=== PATIENT | female | born 1945 | race Caucasian/White ===

== ENCOUNTER 2017-10-11 14:53 | Inpatient (IN) ==
[2017-10-11] MEDS ORDERED: Naloxone 0.4 MG/ML INJ IVP PRN (18:22)
[2017-10-11] MEDS ORDERED: Ketorolac 15 MG/ML VIAL IVP PRN (18:22)
--- NOTE | 2017-10-11 18:41 | Internal Med History&Physical ---
<Jose R Canales - Last Filed: 10/11/17 18:38> Date of Encounter: 10/11/17 Time of Encounter: 18:38 Assessment and Plan (1) Right thigh pain Current visit: Yes Status: Acute Continues to have Rt thigh pain, reporting dull and sometimes sharp shooting pain Still unable to bare weight or ambulate due to right thigh pain; etiology unknown Unclear etiology, no joint swelling, tenderness or crepitus noted D/t clinical presentation Ortho was consulted via [facility] physician and has agreed to accept the patient as long as hospitalist admits. Ortho will see patient in the morning. X-ray right femur completed at [facility] is negative lumbosacral and Rt hip MRI for further evaluation-pending manage pain with hydrocodone and torodol (2) Unable to ambulate Current visit: Yes Status: Acute Still unable to bare weight or ambulate due to right thigh pain X-ray right femur completed at [facility] is negative Unclear etiology, no joint swelling, tenderness or crepitus noted See plan above (3) HTN (hypertension) Current visit: Yes Status: Acute History of essential hypertension. Blood pressure currently stable. Resume home blood pressure medications Qualifiers: Hypertension type: essential hypertension Qualified Code(s): I10 - Essential (primary) hypertension (4) DM (diabetes mellitus) Current visit: Yes Status: Acute History of type 2 diabetes. Continue basal insulin at home dose. Start low- dose sliding scale insulin coverage with before meals and at bedtime Accu- Cheks. Diabetic/cardiac diet Qualifiers: Diabetes mellitus type: type 2 Diabetes mellitus complication status: without complication Diabetes mellitus shelter insulin use: with shelter use Qualified Code(s): E11.9 - Type 2 diabetes mellitus without complications ; Z79.4 - terminal operations supervisor (current) use of insulin; Z79.4 - terminal operations supervisor (current) use of insulin; Z79.4 - terminal operations supervisor (current) use of insulin; Z79.4 - retirement ( current) use of insulin (5) DVT prophylaxis Current visit: Yes Status: Acute Heparin 5000 units subcutaneous twice a day Internal Medicine - H&P: HPI Chief complaint: unable to ambulate or weight bare d/t Rt hip pain Admitted From: Home Plans for Post Hospital Care: Home History of present illness: Ms. Duarte is a 72 year old female with a PMH of neuropathy, hypertension, diabetes, dyslipidemia, neuropathy, CHF. Presents to ARM today from [facility] as she is unable to ambulate or bear weight on right leg due to pain. Denies any injury or trauma. She reports that Thursday she had to make breakfast and felt something pop in her right hip and has had pain ever since. While at [facility] and x-ray of the right femur was completed and found to be negative. However, due to continued pain she requested to be sent to [facility] for further workup and evaluation Past Med Surg Social Fam HX - Past Medical History Medical history: cardiomyopathy, CHF, diabetes, GERD, hypertension Psychiatric history: no psych history - Past Surgical History Surgical History: hysterectomy - Social History Smoking Status: Never smoker Smokeless Tobacco Status: No Alcohol use: none Drug use: none - Additional Family History Additional family history: Noncontributory Internal Medicine - H&P: Meds 3 Allergy/AdvReac Type Severity Reaction Status Date / Time No Known Allergies Allergy Verified 10/11/17 18:57 All Systems PM: A 10-system review of systems was performed and is negative for pertinent findings except as documented above in the HPI. - Constitutional Constitutional: no chills, no fever(s), no night sweats - EENT Eyes: no change in vision, no discharge, no pain, no photophobia Ears: no ear discharge, no ear pain, no tinnitus Nose, mouth and throat: no dysphagia, no nasal discharge, no neck pain, no sore throat - Cardiovascular Cardiovascular ROS IM: no chest pain, no diaphoresis, no dyspnea, no lightheadedness, no palpitations, no syncope - Respiratory Respiratory: no cough, no dyspnea, no wheezing, no excessive phlegm production - Gastrointestinal Gastrointestinal: no abdominal pain, no diarrhea, no hematemesis, no hematochezia, no melena, no nausea, no vomiting - Genitourinary Genitourinary: no change in urinary stream, no dysuria, no flank pain, no hematuria - Musculoskeletal Musculoskeletal ROS IM: arthralgias, limited range of motion, myalgias, no back pain, no deformity, no joint swelling, no muscle cramps, no muscle weakness, no numbness, no tingling - Integumentary Integumentary IM: no rash, no unusual bruising - Neurological Neurological ROS: no confusion, no convulsions, no focal weakness, no numbness, no tingling, no tremor(s) - Hematologic/Lymphatic Hematologic/Lymphatic: no easy bruising - Constitutional Vitals: Temp Pulse Resp BP Pulse Ox 98.5 F 92 16 121/65 96 10/11/17 17:08 10/11/17 17:08 10/11/17 17:08 10/11/17 17:08 10/11/17 17:08 General appearance: Present: cooperative, A&O X 3, no acute distress, answers questions appropriately - Head Head exam: Present: atraumatic, normocephalic - Eye Eye exam: Present: PERRL, conjuntiva pink, sclera anicteric Pupils: Present: PERRL - Neck Neck exam general surgery: Present: supple, trachea midline. Absent: lymphadenopathy - Respiratory Respiratory exam: Present: CTAB. Absent: accessory muscle use, rales, rhonchi, wheezes - Cardiovascular Cardiovascular exam: Present: RRR, +S1, +S2. Absent: diastolic murmur, gallop, rubs, systolic murmur - GI/Abdominal GI/Abdominal exam: Present: normal bowel sounds, soft, no peritoneal signs. Absent: distended, tenderness - Extremities Exam Extremities exam: Present: warm, radial pulses palpable and symmetrical. Absent : calf tenderness, cyanotic, pedal edema - Expanded Lower Extremities Exam Lower Leg exam: Present: full ROM (Full range of motion but pain with R Serrano), normal inspection. Absent: crepitus, deformity, dislocation, swelling, tenderness Gait: Present: not tested/not observed - Neurological Exam Neurological exam: Present: CN II-XII intact, oriented X3, no focal deficits. Absent: pronater drift, facial droop, speech deficit - Skin Skin exam: Present: dry, intact Internal Med - H&P Results - Diagnostic Studies Other Images Additional comments: Report of right femur imaging is negative for fracture <Rola Austin - Last Filed: 10/11/17 20:15> Date of Encounter: 10/11/17 Internal Medicine - H&P: HPI History of present illness: Ms. Duarte is a 72 year old female Past Med Surg Social Fam HX - Family History Mother Living Status: Cause of : [place] Brother Living Status: Cause of : [place] All Systems PM: A 10-system review of systems was performed and is negative for pertinent findings except as documented above in the HPI. - Constitutional Vitals: Temp Pulse Resp BP Pulse Ox 98.2 F 86 16 93/57 92 10/11/17 19:13 10/11/17 19:13 10/11/17 19:13 10/11/17 19:13 10/11/17 19:13 - Attending Attestation I examined this patient and my medical decision-making was reviewed with the Resident Physician. I agree with the documented findings, disposition and treatment plan as described except to the extent set forth below.
[2017-10-11] MEDS ORDERED: Polyethylene Glycol 3350 255 GM POWDER PO ONE (18:51)
[2017-10-11] MEDS ORDERED: D5% in Water 1,000 ML IVC PRN (18:55)
[2017-10-11] MEDS ORDERED: Dextrose Gel 15 GM PO PRN ×2 (18:55)
[2017-10-11] MEDS ORDERED: *HR* Dextrose 50 % in Water (Syg) 50 ML SYRINGE IVP PRN (18:55)
[2017-10-11] MEDS: Insulin LISPRO 300 UNITS/3 ML VIAL SQ SCH (21:44)
[2017-10-11] MEDS: Insulin DETEMIR 100 UNIT/ML X5UNITS SQ SCH (21:45)
[2017-10-11] MEDS: Gabapentin 300 MG CAPSULE PO SCH (21:45)
[2017-10-11] MEDS: Famotidine 20 MG TABLET PO SCH (21:45)
[2017-10-12] MEDS ORDERED: *HR* Heparin 5,000 UNIT/ML VIAL SQ SCH (06:00)
[2017-10-12 07:01] LABS: Basophils # 0.1 K/mcL (0.0-0.2); Eosinophils # 0.1 K/mcL (0.0-0.6); Hematocrit 41.7 % (35.3-44.9); Hemoglobin 13.4 g/dL (11.5-15.4); Immature Granulocytes % 0.2 % (0-4); Lymphocytes # 2.4 K/mcL (0.6-4.6); Lymphocytes % 29.1 %; Mean Corpuscular HGB Conc 32.1 g/dL (31.6-35.5); Mean Corpuscular Volume 90.3 fL (83.0-100.0); Mean Platelet Volume 10.8 fL (9.4-12.4); Monocytes # 0.6 K/mcL (0.0-1.3); Monocytes % 7.3 %; Platelet Count 328 K/mcL (140-400); Red Blood Count 4.62 M/mcL (3.82-4.97); Red Cell Distribution Width 13.8 % (11.5-14.5); Segmented Neutrophils % 61.4 %
[2017-10-12 07:14] LABS: Calcium 9.6 mg/dL (8.6-10.8); Potassium 3.7 mEq/L (3.5-4.5)
[2017-10-12] MEDS: Aspirin 81 MG TAB.CHEW PO SCH (08:44)
[2017-10-12] MEDS: Insulin LISPRO 300 UNITS/3 ML VIAL SQ SCH ×4 (08:44→20:50)
[2017-10-12] MEDS: Famotidine 20 MG TABLET PO SCH (08:44)
[2017-10-12] MEDS: 0.9 % Sodium Chloride 1,000 ML IVC SCH ×2 (08:45→22:25)
[2017-10-12] MEDS ORDERED: amLODIPine 5 MG TABLET PO SCH (09:00)
[2017-10-12] MEDS ORDERED: Furosemide 20 MG TABLET PO PRN (09:00)
--- NOTE | 2017-10-12 11:47 | Internal Med Progress Note ---
Date of Encounter: 10/12/17 Time of Encounter: 11:39 - Assessment and plan (1) Right thigh pain Current Visit: Yes Status: Acute Assessment and plan: presented with right leg pain, swelling and inability to ambulate. Patient reports feeling something pop on her right knee approximately one week ago and has had subsequent pain and decreased mobility since that time. Unable to have MRI due to pacemaker. Lumbar spine x-ray with degenerative disc disease and facet arthropathy gratis at L5-S1 and chronic T12 compression fracture, no acute fracture. Supportive care with pain control. PT/OT consult. Ortho following (2) MARI (acute kidney injury) Current Visit: Yes Status: Acute Assessment and plan: Cr 2.0 on arrival; no known renal disease. Hold home JUNAID. IV fluids. Monitor repeat renal function. (3) HTN (hypertension) Current Visit: Yes Status: Acute Assessment and plan: per hx. BP soft/borderline. Continue home BP medications with hold parameters except for JUNAID as noted above. Monitor BP and titrate PRN Qualifiers: Hypertension type: essential hypertension Qualified Code(s): I10 - Essential (primary) hypertension (4) DM (diabetes mellitus) Current Visit: Yes Status: Acute Assessment and plan: per hx. Blood sugar controlled. Holding home oral hypoglycemics. SSI. Monitor blood sugar and titrate PRN Qualifiers: Diabetes mellitus type: type 2 Diabetes mellitus complication status: without complication Diabetes mellitus group home insulin use: with intermediate accountant use Qualified Code(s): E11.9 - Type 2 diabetes mellitus without complications ; Z79.4 - intermediate accountant (current) use of insulin; Z79.4 - intermediate accountant (current) use of insulin; Z79.4 - USP (current) use of insulin; Z79.4 - USP ( current) use of insulin (5) DVT prophylaxis Current Visit: Yes Status: Acute Assessment and plan: heparin - Time Spent With Patient less than 15 minutes - Subjective Interval history: Seen and examined at bedside, patient is new to me. Information obtained from chart review and patient report. She is still having right leg pain, worse with movement and better with rest. Unable to ambulate or put weight on right leg. NO back pain, no bowel/bladder incont - Constitutional Vitals: Temp Pulse Resp BP Pulse Ox 97.9 F 77 18 94/59 91 10/12/17 10:54 10/12/17 10:54 10/12/17 10:54 10/12/17 10:54 10/12/17 10:54 General appearance: Present: cooperative, A&O X 3, no acute distress, answers questions appropriately - Head Head exam: Present: atraumatic, normocephalic - Eye Eye exam: Present: PERRL, conjuntiva pink, sclera anicteric Pupils: Present: PERRL - Neck Neck exam general surgery: Present: supple, trachea midline. Absent: lymphadenopathy - Respiratory Respiratory exam: Present: CTAB. Absent: accessory muscle use, rales, rhonchi, wheezes - Cardiovascular Cardiovascular exam: Present: RRR, +S1, +S2. Absent: diastolic murmur, gallop, rubs, systolic murmur - GI/Abdominal GI/Abdominal exam: Present: normal bowel sounds, soft, no peritoneal signs. Absent: distended, tenderness - Extremities Exam Extremities exam: Present: pedal edema, warm, radial pulses palpable and symmetrical. Absent: calf tenderness, cyanotic Additional comments: right leg swelling; non-pitting - Neurological Exam Neurological exam: Present: CN II-XII intact, oriented X3, no focal deficits. Absent: pronater drift, facial droop, speech deficit - Skin Skin exam: Present: dry, intact Internal Medicine: Result - Labs CBC & Chem 7: 10/12/17 06:11 10/12/17 06:11 Labs: Short CBC 10/12/17 Range/Units 06:11 WBC 8.1 (4.3-11.1) K/mcL Hgb 13.4 (11.5-15.4) g/dL Hct 41.7 (35.3-44.9) % Plt Count 328 (140-400) K/mcL Neutrophils # 5.0 (1.6-8.9) K/mcL BMP 10/12/17 06:11 Sodium 141 Potassium 3.7 Chloride 105 Carbon Dioxide 24 BUN 34 H Creatinine 2.01 H Glucose 192 H Calcium 9.6 - Impressions Impressions Hip X-Ray 10/12/17 08:30 IMPRESSION: No acute osseous abnormality. Given the degree of osteopenia, nondisplaced fractures may be radiographically occult. If pain or concern for fracture persists, consider MR imaging. D/ /12/2017 09:37:28 Berndaette Moseley MD / neptali Interpreting Provider: Bernadette Moseley MD Lumbar Spine X-Ray 10/12/17 08:31 IMPRESSION: Multilevel degenerative disc disease and facet arthropathy as described above, greatest at L5-S1. Chronic T12 compression deformity with approximately 30% loss of vertebral body height, unchanged from 2009. No acute fracture. D/ / Milad Keller MD / Milad Keller MD Interpreting Provider: Milad Keller MD Consult Discharge Plan - Plan Referrals: Sol Armas, KEEPER HELPER [Primary Care Provider] -
--- NOTE | 2017-10-12 14:27 | Orthopedic Consult Note ---
Date of Encounter: 10/12/17 Time of Encounter: 13:30 Assessment and Plan (1) Right thigh pain Current Visit: Yes Status: Acute Xray of the right hip shows osteopenia but no acute bony abnormalities. Xray of lumbar spine shows degenerative disc disease L5-S1 and a chronic T12 compression deformity but no acute bony abnormalities. She cannot have MRI as she has a pace maker. Patient does have h/o pinched nerves from an old injury years ago and she feels this current pain is similar to that. Continue supportive care. Recommend PT/OT for ambulation. I discussed the case with Dr. Fisher. He recommends CT myelogram of lumbar spine and to follow up with production superintendent hydro on outpatient basis. History of Present Illness Chief complaint: right thigh pain HPI: Ms. Duarte is a 72 year old female who presented to [facility] from [facility] for right hip pain. Patient states about a week ago she was getting up off the couch when she felt a shooting pain in her right knee that went up to her right hip. She did go to [facility] on 10/06/17 where she states she was given muscle relaxers and sent home. The pain got worse yesterday so she returned to [facility] and was then transferred to [facility]. The pain is intermittent not constant and occurs with certain movements of the leg. States the thigh is tender when she touches the inner portion. She has chronic neuropathy from her diabetes but denies any new or worsening numbness or tingling to the extremities. Denies any new injuries. Denies any loss of bowel or bladder function. Denies foot drop. States she had a pinched nerve several years ago and states this current pain is similar to that but now worse than before. She states she has not been able to walk or bear weight to the right leg due to pain. Denies any other pains, denies back pain, chest pain, SOB, fevers. Past Med Surg Social Fam HX - Past Medical History Medical history: cardiomyopathy, CHF, diabetes, GERD, hypertension Psychiatric history: no psych history - Past Surgical History Surgical History: hysterectomy - Social History Smoking Status: Never smoker Smokeless Tobacco Status: No Alcohol use: none Drug use: none - Family History Mother Living Status: Cause of : [place] Brother Living Status: Cause of : [place] Medications and Allergies Atorvastatin [Lipitor] 20 mg PO HS 10/12/17 [History] Carvedilol [Coreg] 25 mg PO BID 10/12/17 [History] Furosemide [Lasix] 40 mg PO TID 10/12/17 [History] Gabapentin [Neurontin] 300 mg PO TID 10/12/17 [History] Glimepiride [Amaryl] 4 mg PO DAILY 10/12/17 [History] Insulin ASPART [Novolog] 15 unit SQ TID PRN 10/12/17 [History] Lisinopril 2.5 mg PO DAILY 10/12/17 [History] Ranitidine HCl [Acid Component Engineer] 150 mg PO DAILY 10/12/17 [History] 3 Allergy/AdvReac Type Severity Reaction Status Date / Time No Known Allergies Allergy Verified 10/11/17 18:57 All Systems Reviewed: A 10-system review of systems was performed and is negative for pertinent findings except as documented above in the HPI. - Constitutional Constitutional: as per HPI - Cardiovascular Cardiovascular: as per HPI - Respiratory Respiratory: as per HPI - Musculoskeletal Musculoskeletal: as per HPI Physical Exam - Constitutional Vitals: Temp Pulse Resp BP Pulse Ox 97.9 F 77 18 94/59 91 10/12/17 10:54 10/12/17 10:54 10/12/17 10:54 10/12/17 10:54 10/12/17 10:54 - Hip right Tenderness with palpation: none Full ROM: yes (no open wounds or lesions, some tenderness with straight leg raise but able to full ROM of hip) - Knee right Appearance: normal Tenderness with palpation knee: none Full ROM: yes Results - Labs Result Diagrams: 10/12/17 06:11 10/12/17 06:11 Labs: Abnormal lab results BUN 34 mg/dL (7-20) H 10/12/17 06:11 Creatinine 2.01 mg/dL (0.57-1.11) H 10/12/17 06:11 Est GFR ( Amer) 29 (> 60) L 10/12/17 06:11 Est GFR (Non-Af Amer) 24 (> 60) L 10/12/17 06:11 Glucose 192 mg/dL (70-99) H 10/12/17 06:11 POC Glucose 186 (58-89) H 10/11/17 20:01 Calculated Osmolality 305 (280-300) H 10/12/17 06:11 H & H 10/12/17 Range/Units 06:11 Hgb 13.4 (11.5-15.4) g/dL Hct 41.7 (35.3-44.9) % All other labs normal. - Diagnostic results Hip x-ray: report reviewed, image reviewed Lumbar AP/lateral x-ray: report reviewed, image reviewed Consult Discharge Plan - Plan Referrals: Sol Armas CNP [Primary Care Provider] - - Attending Attestation Case and plan of care discussed with supervising physician who was available for all aspects of care.
[2017-10-12] MEDS: *HR* Heparin 5,000 UNIT/ML VIAL SQ SCH ×2 (15:18→21:00)
[2017-10-12] MEDS: Gabapentin 300 MG CAPSULE PO SCH (20:48)
[2017-10-12] MEDS: Insulin DETEMIR 100 UNIT/ML X5UNITS SQ SCH (20:49)
[2017-10-13 04:49] LABS: Calcium 8.5 mg/dL (8.6-10.8); Potassium 3.8 mEq/L (3.5-4.5)
[2017-10-13] MEDS: *HR* Heparin 5,000 UNIT/ML VIAL SQ SCH ×3 (05:59→21:15)
[2017-10-13] MEDS: Insulin LISPRO 300 UNITS/3 ML VIAL SQ SCH ×4 (08:18→20:30)
[2017-10-13] MEDS: amLODIPine 5 MG TABLET PO SCH (08:18)
[2017-10-13] MEDS: Famotidine 20 MG TABLET PO SCH (08:19)
[2017-10-13] MEDS: Aspirin 81 MG TAB.CHEW PO SCH (08:19)
--- NOTE | 2017-10-13 15:49 | Physician Discharge Referral ---
ExtendedCare Referral Info Transfer To: [facility] Provider in Charge: Lorena Morales APRN Provider in Charge after Transfer: Other (SNF provider) Institutional Level of Care: Intermediate - Diagnosis (1) Right thigh pain Status: Acute (2) MARI (acute kidney injury) Status: Acute (3) HTN (hypertension) Status: Acute (4) DM (diabetes mellitus) Status: Acute (5) DVT prophylaxis Status: Acute - Transfer Medications Home Medications: Atorvastatin [Lipitor] 20 mg PO HS 10/12/17 [History] Carvedilol [Coreg] 25 mg PO BID 10/12/17 [History] Furosemide [Lasix] 40 mg PO TID 10/12/17 [History] Gabapentin [Neurontin] 300 mg PO TID 10/12/17 [History] Glimepiride [Amaryl] 4 mg PO DAILY 10/12/17 [History] Insulin ASPART [Novolog] 15 unit SQ TID PRN 10/12/17 [History] Lisinopril 2.5 mg PO DAILY 10/12/17 [History] Ranitidine HCl [Acid Signal And Communications Maintainer] 150 mg PO DAILY 10/12/17 [History] Allergies/Adverse Reactions: 3 Allergy/AdvReac Type Severity Reaction Status Date / Time No Known Allergies Allergy Verified 10/11/17 18:57 - Respiratory Orders None Smoking Cessation: Smoking cessation has been advised. For more information, call the [place] Tobacco Quit Line at 9-080-JMRRNOW. - Advance Directives Code Status: Full Code - Rehabiliation Orders Rehab Orders: Evaluation for Physical Therapy, Evaluation for Occupational Therapy - Diet Orders Regular CERTIFICATION: I certify that the transfer of the above named patient to an Extended Care Facility is necessary for the continuing treatment of the diagnosis listed. The above information is true and accurate reflection of patient's current condition. Confidential - Redisclosure prohibited without a patient's written consent.
--- NOTE | 2017-10-13 15:54 | Internal Med Progress Note ---
Date of Encounter: 10/13/17 Time of Encounter: 15:53 - Assessment and plan (1) Right thigh pain Current Visit: Yes Status: Acute Assessment and plan: presented with right leg pain, swelling and inability to ambulate. Patient reports feeling something pop near right knee approximately one week ago and has had subsequent pain and decreased mobility since that time. Unable to have MRI due to pacemaker. Lumbar spine x-ray with degenerative disc disease and facet arthropathy greatest at L5-S1 and chronic T12 compression fracture, no acute fracture. Evaluated by orthopedic who recommends CT myelogram of the lumbar spine however unable to do secondary to renal function. We will trial steroids as she is still unable to bear weight or ambulate. Evaluated by PT/OT who is recommending SNF at discharge. (2) MARI (acute kidney injury) Current Visit: Yes Status: Acute Assessment and plan: Cr 2.0 on arrival; no known renal disease. Hold home JUNAID. Cr improving with IV fluids. Monitor repeat renal function. Renal US pending. (3) HTN (hypertension) Current Visit: Yes Status: Acute Assessment and plan: per hx. BP soft/borderline. Continue home BP medications with hold parameters except for JUNAID as noted above. Monitor BP and titrate PRN Qualifiers: Hypertension type: essential hypertension Qualified Code(s): I10 - Essential (primary) hypertension (4) DM (diabetes mellitus) Current Visit: Yes Status: Acute Assessment and plan: per hx. Blood sugar controlled. Holding home oral hypoglycemics. SSI. Monitor blood sugar and titrate PRN Qualifiers: Diabetes mellitus type: type 2 Diabetes mellitus complication status: without complication Diabetes mellitus manager intermediate insulin use: with longterm use Qualified Code(s): E11.9 - Type 2 diabetes mellitus without complications ; Z79.4 - nursing home (current) use of insulin; Z79.4 - nursing home (current) use of insulin; Z79.4 - nursing home (current) use of insulin; Z79.4 - nursing home ( current) use of insulin (5) DVT prophylaxis Current Visit: Yes Status: Acute Assessment and plan: heparin - Time Spent With Patient less than 15 minutes - Subjective Interval history: Seen and examined at bedside. Patient says she feels about the same, still unable to bear weight on right leg. She reports severe pain at times but she does not want to take pain medicine. Strongly encouraged patient to take pain medicine before pain is uncontrolled. Discussed case with or so and can try steroids. Unable to have CT myelogram due to renal function. Plan for SNF placement at discharge. - Constitutional Vitals: Temp Pulse Resp BP Pulse Ox 98.2 F 77 16 153/80 94 10/13/17 14:54 10/13/17 14:54 10/13/17 14:54 10/13/17 14:54 10/13/17 14:54 General appearance: Present: cooperative, A&O X 3, no acute distress, answers questions appropriately - Head Head exam: Present: atraumatic, normocephalic - Eye Eye exam: Present: PERRL, conjuntiva pink, sclera anicteric Pupils: Present: PERRL - Neck Neck exam general surgery: Present: supple, trachea midline. Absent: lymphadenopathy - Respiratory Respiratory exam: Present: CTAB. Absent: accessory muscle use, rales, rhonchi, wheezes - Cardiovascular Cardiovascular exam: Present: RRR, +S1, +S2. Absent: diastolic murmur, gallop, rubs, systolic murmur - GI/Abdominal GI/Abdominal exam: Present: normal bowel sounds, soft, no peritoneal signs. Absent: distended, tenderness - Extremities Exam Extremities exam: Present: warm, radial pulses palpable and symmetrical. Absent : calf tenderness, cyanotic, pedal edema - Neurological Exam Neurological exam: Present: CN II-XII intact, oriented X3, no focal deficits. Absent: pronater drift, facial droop, speech deficit - Skin Skin exam: Present: dry, intact Internal Medicine: Result - Labs CBC & Chem 7: 10/12/17 06:11 10/13/17 03:40 Labs: BMP 10/13/17 03:40 Sodium 141 Potassium 3.8 Chloride 109 Carbon Dioxide 23 BUN 41 H Creatinine 1.43 H Glucose 192 H Calcium 8.5 L Consult Discharge Plan - Plan Referrals: Sol Armas CNP [Primary Care Provider] -
[2017-10-13] MEDS: predniSONE 20 MG TABLET PO SCH (17:13)
[2017-10-13] MEDS: Insulin DETEMIR 100 UNIT/ML X5UNITS SQ SCH (20:30)
[2017-10-13] MEDS: Gabapentin 300 MG CAPSULE PO SCH (20:30)
[2017-10-14] MEDS: 0.9 % Sodium Chloride 1,000 ML IVC SCH ×5 (04:48→18:06)
[2017-10-14] MEDS: *HR* Heparin 5,000 UNIT/ML VIAL SQ SCH (05:56)
[2017-10-14 07:03] LABS: BUN/Creatinine Ratio 31 (6-26); Blood Urea Nitrogen 23 mg/dL (8-23); Calcium 8.8 mg/dL (8.6-10.3); Carbon Dioxide 25 mEq/L (23-29); Chloride 110 mEq/L (98-107); Glucose 218 mg/dL (70-105); Osmolality,Calculated 304 (280-300); Potassium 3.9 mEq/L (3.5-5.1); Sodium 142 mEq/L (136-145); eGFR For African Americans > 60 (> 60); eGFR For Non-African Americans > 60 (> 60)
[2017-10-14] MEDS: *HR* HYDROcodone/Acet 5/325 mg TABLET PO PRN ×2 (09:09→17:20)
[2017-10-14] MEDS: amLODIPine 5 MG TABLET PO SCH (09:10)
[2017-10-14] MEDS: Aspirin 81 MG TAB.CHEW PO SCH (09:10)
[2017-10-14] MEDS: predniSONE 20 MG TABLET PO SCH (09:10)
[2017-10-14] MEDS: Famotidine 20 MG TABLET PO SCH (09:10)
[2017-10-14] MEDS: Insulin LISPRO 300 UNITS/3 ML VIAL SQ SCH ×4 (09:11→21:12)
--- NOTE | 2017-10-14 11:20 | Discharge Summary ---
Date of Encounter: 10/14/17 Time of Encounter: 11:15 - Discharge Diagnosis (1) Right thigh pain Priority: Primary Status: Acute Comments: presented with right leg pain and inability to ambulate. Patient reported feeling something "pop" near right knee approximately one week prior to presentation with subsequent pain and decreased mobility. Lumbar spine x-ray with degenerative disc disease and facet arthropathy greatest at L5-S1 and chronic T12 compression fracture, no acute fracture. Unable to have MRI due to pacemaker. CT myelogram showed multilevel thecal sac narrowing with neural foraminal stenosis, moderate to severe canal stenosis at L4-5, moderate to severe neural foraminal stenosis at L5-S1 with compression of both exiting nerve roots and chronic endplate fracture of T12. Discussed with Ortho and will consult Dr. Charlton for possible surgical intervention. (2) MARI (acute kidney injury) Priority: Primary Status: Acute Comments: Cr 2.0 on arrival; no known renal disease. Renal US unremarkable. Cr normalized with IV fluids and holding home JUNAID. Cont to hold home JUNAID with contrast exposure. Pre-medicated with IV fluids pre and post myelogram to protect against ELLA. Monitor repeat renal fx. (3) HTN (hypertension) Priority: Primary Status: Acute Comments: per hx. BP variable but acceptable. Home JUNAID stopped with MARI and contrast exposure. Home BB increased. Cont home amlodipine Qualifiers: Hypertension type: essential hypertension Qualified Code(s): I10 - Essential (primary) hypertension (4) DM (diabetes mellitus) Priority: Primary Status: Chronic Comments: per hx. Blood sugars variable but overall controlled. Monitor blood sugar and titrate PRN Qualifiers: Diabetes mellitus type: type 2 Diabetes mellitus complication status: without complication Diabetes mellitus halfway insulin use: with halfway use Qualified Code(s): E11.9 - Type 2 diabetes mellitus without complications ; Z79.4 - emt intermediate (current) use of insulin; Z79.4 - longterm (current) use of insulin; Z79.4 - emt intermediate (current) use of insulin; Z79.4 - longterm ( current) use of insulin (5) DVT prophylaxis Priority: Secondary Status: Acute Comments: SCDs - Discharge Medications Home Medications: Atorvastatin [Lipitor] 20 mg PO HS 10/12/17 [History] Carvedilol [Coreg] 25 mg PO BID 10/12/17 [History] Furosemide [Lasix] 40 mg PO TID 10/12/17 [History] Gabapentin [Neurontin] 300 mg PO TID 10/12/17 [History] Glimepiride [Amaryl] 4 mg PO DAILY 10/12/17 [History] Insulin ASPART [Novolog] 15 unit SQ TID PRN 10/12/17 [History] Lisinopril 2.5 mg PO DAILY 10/12/17 [History] Ranitidine HCl [Acid Tray Line Supervisor] 150 mg PO DAILY 10/12/17 [History] Allergies/Adverse Reactions: 3 Allergy/AdvReac Type Severity Reaction Status Date / Time No Known Allergies Allergy Verified 10/11/17 18:57 Procedures/tests Complete & Pending: Procedures Performed prior 72 hours Category Date Time Status retroperitoneal ultrasound - limited [US Exams 10/13/17 19:00 Completed retroperitoneal limited] [US] Routine Date of admission: 10/11/17 16:44 Primary care physician: Sol Armas, Consults: 10/11/17 18:28 Consult to Occupational Therapy [CONS] Routine Comment: Evaluate, develop and implement POC Reason for Consult: Unable to ambulate or weight bare due to new right hip pain Consult to Physical Therapy [CONS] Routine Comment: Evaluate, develop and implement POC Reason for Consult: Unable to ambulate or weight bare due to new right hip pain 10/11/17 18:45 Consult to Orthopedic Surgery [CONS] Routine Consulting Provider: [facility] Reason for Consult: unable to ambulate to bare weight d/t rt thigh pain Time Notified: 18:46 Call Completed: No 10/13/17 11:42 Consult to Turf Farm Worker [CONS] Routine Reason for SW Consult: discharge needs Discharging clinician: Lorena Morales Anticipated date of discharge: 10/14/17 - Patient Status Disposition: Transfer SNF Condition: Good Functional capacity at discharge: uses cane/walker Overall status at discharge: patient is not back to baseline - Discharge Instructions Follow Up With: Sol Armas CNP [Primary Care Provider] - - Diet and Activity Activity: as per physical therapy Diet: advance to your usual diet Interval History: Seen and examined at side. No changes in exam to report. Still with right leg pain and unable to bear weight. No numbness or tingling, no bowel or bladder incont - Time Spent with Patient Total time spent providing and/or coordinating discharge services: - Constitutional Vitals: Temp Pulse Resp BP Pulse Ox 97.9 F 86 16 150/67 96 10/14/17 11:00 10/14/17 11:00 10/14/17 11:00 10/14/17 11:00 10/14/17 11:00 General appearance: Present: cooperative, A&O X 3, no acute distress, answers questions appropriately - Head Head exam: Present: atraumatic, normocephalic - Eye Eye exam: Present: PERRL, conjuntiva pink, sclera anicteric Pupils: Present: PERRL - Neck Neck exam general surgery: Present: supple, trachea midline. Absent: lymphadenopathy - Respiratory Respiratory exam: Present: CTAB. Absent: accessory muscle use, rales, rhonchi, wheezes - Cardiovascular Cardiovascular exam: Present: RRR, +S1, +S2. Absent: diastolic murmur, gallop, rubs, systolic murmur - GI/Abdominal GI/Abdominal exam: Present: normal bowel sounds, soft, no peritoneal signs. Absent: distended, tenderness - Extremities Exam Extremities exam: Present: warm, radial pulses palpable and symmetrical. Absent : calf tenderness, cyanotic, pedal edema - Neurological Exam Neurological exam: Present: CN II-XII intact, oriented X3, no focal deficits. Absent: pronater drift, facial droop, speech deficit - Skin Skin exam: Present: dry, intact
[2017-10-14 12:30] LABS: INR 1.1; Prothrombin Time 11.4 Seconds (9.4-12.1)
[2017-10-14] MEDS: Insulin DETEMIR 100 UNIT/ML X5UNITS SQ SCH (21:13)
[2017-10-14] MEDS: Gabapentin 300 MG CAPSULE PO SCH (21:13)
[2017-10-15] MEDS: 0.9 % Sodium Chloride 1,000 ML IVC SCH ×2 (05:11→15:21)
[2017-10-15 05:46] LABS: BUN/Creatinine Ratio 27 (6-26); Blood Urea Nitrogen 20 mg/dL (8-23); Calcium 8.8 mg/dL (8.6-10.3); Carbon Dioxide 26 mEq/L (23-29); Chloride 113 mEq/L (98-107); Glucose 136 mg/dL (70-105); Osmolality,Calculated 309 (280-300); Potassium 3.6 mEq/L (3.5-5.1); Sodium 147 mEq/L (136-145); eGFR For African Americans > 60 (> 60); eGFR For Non-African Americans > 60 (> 60)
[2017-10-15] MEDS: Insulin LISPRO 300 UNITS/3 ML VIAL SQ SCH ×4 (07:09→22:23)
[2017-10-15] MEDS: amLODIPine 5 MG TABLET PO SCH (07:42)
[2017-10-15] MEDS: Aspirin 81 MG TAB.CHEW PO SCH (07:43)
[2017-10-15] MEDS: Famotidine 20 MG TABLET PO SCH (07:43)
[2017-10-15] MEDS: predniSONE 20 MG TABLET PO SCH (07:44)
--- NOTE | 2017-10-15 13:10 | Pain Management History & Phys ---
Date of Encounter: 10/15/17 Time of Encounter: 12:53 Assessment and Plan (1) Right thigh pain Current Visit: Yes Status: Acute The assessment and plan as outlined above was discussed with the patient and/or family members who expressed understanding and agreement. All questions were answered. I discussed the case with the hospitalist who was taking over her care. I cannot see the patient having an neural radicular process without the presence of back pain. While this could be a true an isolated sciatica my inclination is that there is something more focal going on in the hip complex. I think this is more of an intrinsic hip issue. Would recommend imaging of the right hip. Would recommend initiating physical therapy of the right hip. May need placement for further assistance. I can follow-up with her as an outpatient thereafter to see if there is anything further I can do once these measures are trialed (2) Unable to ambulate Current Visit: Yes Status: Acute The assessment and plan as outlined above was discussed with the patient and/or family members who expressed understanding and agreement. All questions were answered. History of Present Illness Chief complaint: leg pain HPI: Ms. Duarte is a 72 year old female The patient is known to have a recent history of significant right hip pain. Unable to walk. Has been to the ED x2 over the last week. Cannot bear weight. Has pain in the right lateral thigh, right groin. SHarp and well localized. Radiates into the thigh. Had lumbar MRI that was reported to show foraminal stenosis at L5-S1. No weakness. No B/B dysfunction. Past Med Surg Social Fam HX - Past Medical History Medical history: cardiomyopathy, CHF, diabetes, GERD, hypertension Psychiatric history: no psych history - Past Surgical History Surgical History: hysterectomy - Social History Smoking Status: Never smoker Smokeless Tobacco Status: No Alcohol use: none Drug use: none - Family History Mother Living Status: Cause of : [place] Brother Living Status: Cause of : [place] Medications and Allergies Atorvastatin [Lipitor] 20 mg PO HS 10/12/17 [History] Carvedilol [Coreg] 25 mg PO BID 10/12/17 [History] Furosemide [Lasix] 40 mg PO TID 10/12/17 [History] Gabapentin [Neurontin] 300 mg PO TID 10/12/17 [History] Glimepiride [Amaryl] 4 mg PO DAILY 10/12/17 [History] Insulin ASPART [Novolog] 15 unit SQ TID PRN 10/12/17 [History] Lisinopril 2.5 mg PO DAILY 10/12/17 [History] Ranitidine HCl [Acid Nipple Machine Operator] 150 mg PO DAILY 10/12/17 [History] 3 Allergy/AdvReac Type Severity Reaction Status Date / Time No Known Allergies Allergy Verified 10/11/17 18:57 Review of Systems - Constitutional Constitutional ROS IM: no photophobia, no phonophobia, no daytime sleepiness, no fever(s), no stops breathing during sleep - EENT Nose, mouth and throat: no headache(s), no neck pain, no neck trauma - Cardiovascular Cardiovascular ROS: no chest pain, no leg edema, no lightheadedness - Respiratory Respiratory: no pain on inspiration, no pain with cough - Gastrointestinal Gastrointestinal: no abdominal pain, no constipation, no diarrhea, no heartburn - Genitourinary Genitourinary ROS: no difficulty urinating, no flank pain, no urinary hesitancy - Musculoskeletal right: hip pain - Integumentary Integumentary: no erythema, no lesions, no swelling - Neurological Neurological ROS: as per HPI - Psychiatric Psychiatric general: no anxiety, no confusion, no depression - Hematologic/Lymphatic Hematologic/Lymphatic pediatric: no easy bleeding, no easy bruising Physical Exam Initial Vital Signs Temp Pulse Resp BP Pulse Ox 98.5 F 92 16 121/65 96 10/11/17 17:08 10/11/17 17:08 10/11/17 17:08 10/11/17 17:08 10/11/17 17:08 - General physical appearance General physical appearance: awake & oriented, no distress, moderate pain - Eyes Eye exam: normal ocular movement - Neck no venous distension - Respiratory normal respiratory effort - Cardiovascular Cardiovascular exam: Present: RRR - Abdomen Abdomen: soft - Integumentary Integumentary general surgery: no rash - Neurologic other (Straight leg raising test negative. Pain with full flexion and external rotation. Antalgic gait. Unable to bear weight on the right side) - Musculoskeletal Musculoskeletal: other (antalgic gait. Normal Strength) Musculoskeletal: Straight leg: bilateral (Negative) - Psychiatric Psychiatric: oriented to time, oriented to person, oriented to place Results - Labs 10/12/17 06:11 10/15/17 04:21 Abnormal lab results Sodium 147 mEq/L (136-145) H 10/15/17 04:21 Chloride 113 mEq/L (98-107) H 10/15/17 04:21 BUN/Creatinine Ratio 27 (6-26) H 10/15/17 04:21 Glucose 136 mg/dL (70-105) H 10/15/17 04:21 POC Glucose 302 (58-89) H 10/14/17 17:22 Calculated Osmolality 309 (280-300) H 10/15/17 04:21 Diabetes panel 10/15/17 Range/Units 04:21 Sodium 147 H (136-145) mEq/L Potassium 3.6 (3.5-5.1) mEq/L Chloride 113 H (98-107) mEq/L Carbon Dioxide 26 (23-29) mEq/L BUN 20 (8-23) mg/dL Creatinine 0.74 (0.60-1.20) mg/dL Glucose 136 H (70-105) mg/dL Calcium 8.8 (8.6-10.3) mg/dL Calcium panel 10/15/17 Range/Units 04:21 Calcium 8.8 (8.6-10.3) mg/dL Pituitary panel 10/15/17 Range/Units 04:21 Sodium 147 H (136-145) mEq/L Potassium 3.6 (3.5-5.1) mEq/L Chloride 113 H (98-107) mEq/L Carbon Dioxide 26 (23-29) mEq/L BUN 20 (8-23) mg/dL Creatinine 0.74 (0.60-1.20) mg/dL Glucose 136 H (70-105) mg/dL Calcium 8.8 (8.6-10.3) mg/dL Adrenal panel 10/15/17 Range/Units 04:21 Sodium 147 H (136-145) mEq/L Potassium 3.6 (3.5-5.1) mEq/L Chloride 113 H (98-107) mEq/L Carbon Dioxide 26 (23-29) mEq/L BUN 20 (8-23) mg/dL Creatinine 0.74 (0.60-1.20) mg/dL Glucose 136 H (70-105) mg/dL Calcium 8.8 (8.6-10.3) mg/dL All other labs normal.
[2017-10-15] MEDS: *HR* HYDROcodone/Acet 5/325 mg TABLET PO PRN (15:26)
--- NOTE | 2017-10-15 19:00 | Event Note ---
Date of Encounter: 10/15/17 Time of Encounter: 11:00 Will order right hip x-ray before discharge for evaluation
[2017-10-15] MEDS: Gabapentin 300 MG CAPSULE PO SCH (22:23)
[2017-10-15] MEDS: Insulin DETEMIR 100 UNIT/ML X5UNITS SQ SCH (22:23)
[2017-10-16] MEDS: 0.9 % Sodium Chloride 1,000 ML IVC SCH ×2 (04:10→14:35)
[2017-10-16] MEDS: Insulin LISPRO 300 UNITS/3 ML VIAL SQ SCH ×2 (08:16→12:07)
[2017-10-16] MEDS: Famotidine 20 MG TABLET PO SCH (08:21)
[2017-10-16] MEDS: Aspirin 81 MG TAB.CHEW PO SCH (08:21)
[2017-10-16] MEDS: predniSONE 20 MG TABLET PO SCH (08:21)
[2017-10-16] MEDS: amLODIPine 5 MG TABLET PO SCH (08:21)
[2017-10-16 10:27] VITALS: BP 131/71
--- NOTE | 2017-10-16 12:48 | Discharge Summary ---
Date of Encounter: 10/16/17 Time of Encounter: 11:00 - Discharge Medications Home Medications: Atorvastatin [Lipitor] 20 mg PO HS 10/12/17 [History] Carvedilol [Coreg] 25 mg PO BID 10/12/17 [History] Furosemide [Lasix] 40 mg PO TID 10/12/17 [History] Gabapentin [Neurontin] 300 mg PO TID 10/12/17 [History] Glimepiride [Amaryl] 4 mg PO DAILY 10/12/17 [History] Insulin ASPART [Novolog] 15 unit SQ TID PRN 10/12/17 [History] Lisinopril 2.5 mg PO DAILY 10/12/17 [History] Ranitidine HCl [Acid Home Delivery Driver] 150 mg PO DAILY 10/12/17 [History] Allergies/Adverse Reactions: 3 Allergy/AdvReac Type Severity Reaction Status Date / Time No Known Allergies Allergy Verified 10/11/17 18:57 Procedures/tests Complete & Pending: Procedures Performed prior 72 hours Category Date Time Status CT lumbar spine w con [CT] Stat Cat Scan 10/14/17 11:56 Completed retroperitoneal ultrasound - limited [US Exams 10/13/17 19:00 Completed retroperitoneal limited] [US] Routine Date of admission: 10/16/17 09:36 Primary care physician: Sol Armas, Consults: 10/11/17 18:28 Consult to Occupational Therapy [CONS] Routine Comment: Evaluate, develop and implement POC Reason for Consult: Unable to ambulate or weight bare due to new right hip pain Consult to Physical Therapy [CONS] Routine Comment: Evaluate, develop and implement POC Reason for Consult: Unable to ambulate or weight bare due to new right hip pain 10/11/17 18:45 Consult to Orthopedic Surgery [CONS] Routine Consulting Provider: [facility] Reason for Consult: unable to ambulate to bare weight d/t rt thigh pain Time Notified: 18:46 Call Completed: No 10/13/17 11:42 Consult to International Marketing Intern [CONS] Routine Reason for SW Consult: discharge needs 10/14/17 19:41 Consult to Physician [CONS] Routine Consulting Provider: Vishal Goodrich Reason for Consult: right leg pain, inability to walk. Lumbar CT with stenosis Call Completed: Yes - Patient Status Disposition: Transfer SNF Condition: Good - Discharge Instructions Instructions: Chronic Hypertension (DC) Follow Up With: Sol Armas CNP [Primary Care Provider] - Hospital course: Patient is a 72-year-old female with past medical history significant for neuropathy, hypertension, diabetes, dyslipidemia, neuropathy and CHF who presented to [facility] on 10/11/[address] [facility] due to not being able to ambulate. Patient reports of not being able to bear weight or ambulate due to right leg pain. She denies any recent injury or trauma but reported that she felt a pop in her right hip and experience pain shortly thereafter. While at [facility] x-ray of the right femur was completed and found to be negative. However, due to continued pain she requested to be sent to [facility] for further workup and evaluation. During patients hospital stay orthopedic surgery was consulted and reviewed hip x-ray which showed osteopenia but no acute abnormalities. Recommendations are for physical therapy. In addition, spine/pain specialist was consulted and did not think her pain was related to her spine. Patient will be discharged to [facility] for rehabilitation. - Time Spent with Patient Total time spent providing and/or coordinating discharge services: Less than 30 minutes - Constitutional Vitals: Temp Pulse Resp BP Pulse Ox 97.5 F L 64 18 131/71 98 10/16/17 10:25 10/16/17 10:25 10/16/17 10:25 10/16/17 10:25 10/16/17 10:25 General appearance: Present: cooperative, A&O X 3, no acute distress, answers questions appropriately
--- NOTE | 2017-10-16 12:49 | Physician Discharge Referral ---
ExtendedCare Referral Info Institutional Level of Care: Skilled - Transfer Medications Home Medications: Atorvastatin [Lipitor] 20 mg PO HS 10/12/17 [History] Carvedilol [Coreg] 25 mg PO BID 10/12/17 [History] Furosemide [Lasix] 40 mg PO TID 10/12/17 [History] Gabapentin [Neurontin] 300 mg PO TID 10/12/17 [History] Glimepiride [Amaryl] 4 mg PO DAILY 10/12/17 [History] Insulin ASPART [Novolog] 15 unit SQ TID PRN 10/12/17 [History] Lisinopril 2.5 mg PO DAILY 10/12/17 [History] Ranitidine HCl [Acid Automotive General Manager] 150 mg PO DAILY 10/12/17 [History] Allergies/Adverse Reactions: 3 Allergy/AdvReac Type Severity Reaction Status Date / Time No Known Allergies Allergy Verified 10/11/17 18:57 - Respiratory Orders Smoking Cessation: Smoking cessation has been advised. For more information, call the [place] Tobacco Quit Line at 5-590-SCYH-NOW. - Rehabiliation Orders Rehab Potential: Good Rehab Orders: ROM Exercises, Evaluation for Physical Therapy CERTIFICATION: I certify that the transfer of the above named patient to an Extended Care Facility is necessary for the continuing treatment of the diagnosis listed. The above information is true and accurate reflection of patient's current condition. Confidential - Redisclosure prohibited without a patient's written consent.
== END 2017-10-16 16:05 | DRG 565 ==
LOC: 3BNU → SUATTDRO 16:44
PROVIDERS: ADMIT Hospitalist; ATTEND Hospitalist